=== PATIENT | male | born 1960 | race African-American/Black ===

== ENCOUNTER 2019-01-02 21:59 | Emergency (ER) | payer SELFPAY ==
[~2019-01-02] VITALS: Ht 185.4 cm; Wt 82.0 kg
[2019-01-03] MEDS ORDERED: MORPHINE SULFATE 4 MG/ML CPJ (NOT FOR IM USE) IV ONE (01:00)
[2019-01-03] MEDS ORDERED: KETOROLAC 15MG/ML VIAL IV ONE (02:15)
[2019-01-03 03:10] VITALS: BP 121/86
== END 2019-01-03 03:16 | disposition home or self-care (01) ==
LOC: ER 21:59
DX: S43.102A Unspecified dislocation of left acromioclavicular joint, initial encounter (principal); S16.1XXA Strain of muscle, fascia and tendon at neck level, initial encounter; R51 Headache; F12.90 Cannabis use, unspecified, uncomplicated; V49.49XA Driver injured in collision with other motor vehicles in traffic accident, initial encounter; Y93.89 Activity, other specified; Y92.410 Unspecified street and highway as the place of occurrence of the external cause
CPT/HCPCS: 70450; 73030; 96374; 96375; 99284; J1885; J2270; Z7610

== ENCOUNTER 2022-02-19 19:04 | Emergency (ER) | payer MEDICAID, OTHER ==
[~2022-02-19] VITALS: Ht 182.9 cm; Wt 68.5 kg
[~2022-02-19 19:04] MED LIST: ACET-2708 PO
[2022-02-19 19:22] VITALS: BP 113/82
== END 2022-02-19 19:30 | disposition home or self-care (01) ==
LOC: ER 19:23
DX: Z48.00 Encounter for change or removal of nonsurgical wound dressing (principal)
CPT/HCPCS: 99281

== ENCOUNTER 2022-02-28 09:42 | Emergency (ER) | payer OTHER ==
[~2022-02-28] VITALS: Ht 188 cm; Wt 90.0 kg
[2022-02-28 09:43] VITALS: BP 157/92
== END 2022-02-28 10:06 | disposition home or self-care (01) ==
LOC: ER 09:42
DX: Z48.02 Encounter for removal of sutures (principal)
CPT/HCPCS: 99281